=== PATIENT | female | born 1960 | race Caucasian/White ===

== ENCOUNTER 2016-03-29 08:57 | Emergency (ER) | payer BC, MEDICAID ==
[~2016-03-29] VITALS: Wt 78.0 kg
[~2016-03-29 08:57] MED LIST: ASPI-664 PO; ATOR10TA65 PO; DICY10CA60 PO; HYD25 PO; LOSA25TA5 PO; ONDA4TAB14 PO
[2016-03-29] MEDS ORDERED: BENZ100C70 PO (10:34)
[2016-03-29] MEDS ORDERED: IBUP-1542 PO (10:34)
--- NOTE | 2016-03-29 10:53 | RADRPT ---
PROCEDURE: Chest Radiograph. CLINICAL INDICATION: Cough. Congestion. TECHNIQUE: Single frontal chest radiograph. COMPARISON: Chest radiograph 05/28/2015 FINDINGS: The cardiomediastinal silhouette is within normal limits. No infiltrate or effusion is seen. Th e bones are intact. IMPRESSION: 1. Unremarkable chest radiograph. RPTAT: AA .Skip Rivera MD, MD Date Time Electronically viewed and signed by .Skip Rivera MD, on 03/29/2016 10:52 .B/
--- NOTE | 2016-03-29 10:53 | ERD ---
ER Documentation Chief Complaint Date/Time DATE: 03/29/16 TIME: 10:50 Chief Complaint FEVER COUGH X 3 DAYS HPI Patient is a 55-year-old female with history of hypertension presenting to the emergency department for cough ongoing for the past 2 days. Additionally the patient reports tactile fevers, chest congestion and slight stabbing chest pain only while coughing. The patient took ibuprofen yesterday with mild relief of symptoms. The patient denies any nausea, vomiting, diarrhea, urinary symptoms, or other symptoms at this time. ROS All systems reviewed and are negative except as per history of present illness. Medications Home Meds Active Scripts Ibuprofen* (Motrin*) 600 Mg Tab, 600 MG PO Q6, #20 TAB Prov:GOVIND CHEUNG PA-C 03/29/16 Benzonatate* (Tessalon Perle*) 100 Mg Capsule, 100 MG PO Q8H Y for COUGH, #20 CAP Prov:GOVIND CHEUNG PA-C 03/29/16 Ondansetron (Ondansetron Odt) 4 Mg Tab.rapdis, 4 MG PO Q6H Y for NAUSEA AND/OR VOMITING, #10 TAB Prov:GOVIND NATHAN 02/05/16 Dicyclomine Hcl* (Bentyl*) 10 Mg Capsule, 10 MG PO QID, #20 CAP Prov:GOVIND NATHAN 02/05/16 Aspirin* (Aspirin* EC) 81 Mg Tabec, 81 MG PO DAILY for 30 Days Prov:IVIS HAMMER 05/29/15 Reported Medications Atorvastatin Calcium (Atorvastatin Calcium) 10 Mg Tablet, 10 MG PO QHS, #30 TAB 05/28/15 Losartan Potassium* (Losartan Potassium*) 25 Mg Tablet, 25 MG PO DAILY, TAB 05/28/15 Hydrochlorothiazide* (Hydrochlorothiazide*) 25 Mg Tab, 25 MG PO DAILY, #30 TAB 05/28/15 Allergies Allergies: Coded Allergies: No Known Drug Allergies (Verified Allergy, Mild, 02/05/16) PMhx/Soc History of Surgery: Yes (ear surgery 3 years ago) Anesthesia Reaction: No Hx Neurological Disorder: No Hx Respiratory Disorders: No Hx Cardiac Disorders: Yes (htn) Hx Psychiatric Problems: No Hx Miscellaneous Medical Probl: Yes (high cholesterol) Hx Alcohol Use: No Hx Substance Use: No Hx Tobacco Use: No FmHx Noncontributory for chief complaint Physical Exam Vitals Vital Signs Date Time Temp Pulse Resp B/P Pulse Ox O2 Delivery O2 Flow Rate FiO2 03/29/16 09:03 99.0 101 18 153/78 99 Physical Exam INITIAL VITAL SIGNS: Reviewed by me. GENERAL: Alert and interactive. No acute distress. HEAD: Head is normocephalic and atraumatic. EYES: EOMI. No scleral icterus. No conjunctival injection. ENT: Moist mucosa. NECK: Supple. Full range of motion. RESPIRATORY: Normal respiratory effort. Clear breath sounds bilaterally. No wheezing, rales, or rhonchi. CV: Regular rate and rhythm. Normal S1 S2. No S3 or S4. No murmurs. ABDOMEN: Soft, non-distended, non-tender. No guarding. No rebound. No masses. EXTREMITIES: No deformity. SKIN: Warm and dry. NEUROLOGIC: Alert and oriented x 4. Speech is normal. Moves all extremities equally. No motor or sensory deficits noted. Procedures/MDM 35-year-old female presents secondary to complaints of cough and chest congestion ongoing for 2 days. On physical examination the patient's vitals are within normal limits. On auscultation of the lungs there are no crackles or exam findings concerning for bronchitis or pneumonia or asthma. EKG: Interpreted by ED physician Rate/Rhythm: Normal sinus rhythm with a rate of 83 bpm QRS, ST, T-waves: No changes consistent w/ acute ischemia Impression: No evidence of ischemia or arrhythmia Chest x-ray interpreted by radiologist: 1. Unremarkable chest radiograph. The patient's primary diagnosis is upper respiratory infection and secondary diagnosis is cough. I doubt bronchitis, pneumonia, asthma exacerbation, or other emergent conditions. I believe the symptoms are viral in etiology. Patient will be discharged home with a prescription for Tessalon Perles and ibuprofen to take only as needed for cough, fevers, or pain. The patient understands the diagnosis and treatment plan. The patient is hemodynamically stable prior to discharge. All questions and concerns were addressed. Departure Diagnosis: Primary Impression: Upper respiratory infection Additional Impression: Cough Condition: Fair Patient Instructions: Preventing Common Respiratory Infections, Cough, Chronic , Uncertain Cause, (Adult) Additional Instructions: No mas mejor en 2-3 ruiz, regresar. Mas peor en 24 horas, regresear rapidamente. Ir a doctor primario in 5-7 ruiz. Usar instrucciones cuando kiki medicamento. GOVIND CHEUNG PA-C Mar 29, 2016 10:53
[2016-03-29 11:23] VITALS: BP 141/65; PULSE 93; RESP 18; TEMP 98.5
== END 2016-03-29 11:24 | disposition home or self-care (01) ==
LOC: FTE 08:57
DX: J06.9 Acute upper respiratory infection, unspecified (principal); I10 Essential (primary) hypertension; Z79.82 Long term (current) use of aspirin
CPT/HCPCS: 71010

== ENCOUNTER 2016-04-01 10:08 | Emergency (ER) | payer BC ==
[~2016-04-01] VITALS: Wt 91.0 kg
[~2016-04-01 10:08] MED LIST changes: +BENZ100C70 PO; +IBUP-1542 PO
[2016-04-01] MEDS ORDERED: IBUPROFEN 600 MG TAB PO ONE (11:00)
--- NOTE | 2016-04-01 11:14 | RADRPT ---
PROCEDURE: XR Chest. CLINICAL INDICATION: chest pain, cough TECHNIQUE: Single frontal view of the chest was obtained COMPARISON: 03/29/2016 FINDINGS: The heart and mediastinum are within normal limits. The lungs are clear. There is no pleural effusion or pneumothorax. RPTAT: AA IMPRESSION: No acute disease. .Mario Morales MD, MD Date Time Electronically viewed and signed by .Mario Morales MD, MD on 04/01/2016 11:14 .S/
[2016-04-01] MEDS ORDERED: AZIT250T94 PO (11:33)
[2016-04-01] MEDS ORDERED: IBUP-1542 PO (11:33)
--- NOTE | 2016-04-01 11:38 | ERD ---
ER Documentation Chief Complaint Date/Time DATE: 04/01/16 TIME: 11:36 Chief Complaint FEVER BODY PAIN AND COUGH FOR A FEW DAYS. NO DISTRESS. SORE THROAT NOTED HPI This 55-year-old female complains of cough and body aches for last few days. There is no fever triage. She does have productive sputum. She denies vomiting , abdominal pain, diarrhea ROS All systems reviewed and are negative except as per history of present illness. Medications Home Meds Active Scripts Ibuprofen* (Motrin*) 600 Mg Tab, 600 MG PO Q6, #20 TAB Prov:RE REID MD 04/01/16 Azithromycin* (Zithromax*) 250 Mg Tablet, 250 MG PO .ZPACK DIRECTED, #6 TAB TAKE 500 MG (2 TABS) THE FIRST DAY THEN 250 MG (1 TAB) DAYS 2-5 Prov:RE REID MD 04/01/16 Ibuprofen* (Motrin*) 600 Mg Tab, 600 MG PO Q6, #20 TAB Prov:GOVIND CHEUNG PA-C 03/29/16 Benzonatate* (Tessalon Perle*) 100 Mg Capsule, 100 MG PO Q8H Y for COUGH, #20 CAP Prov:GOVIND CHEUNG PA-C 03/29/16 Ondansetron (Ondansetron Odt) 4 Mg Tab.rapdis, 4 MG PO Q6H Y for NAUSEA AND/OR VOMITING, #10 TAB Prov:GOVIND NATHAN 02/05/16 Dicyclomine Hcl* (Bentyl*) 10 Mg Capsule, 10 MG PO QID, #20 CAP Prov:GOVIND NATHAN 02/05/16 Aspirin* (Aspirin* EC) 81 Mg Tabec, 81 MG PO DAILY for 30 Days Prov:IVIS HAMMER 05/29/15 Reported Medications Atorvastatin Calcium (Atorvastatin Calcium) 10 Mg Tablet, 10 MG PO QHS, #30 TAB 05/28/15 Losartan Potassium* (Losartan Potassium*) 25 Mg Tablet, 25 MG PO DAILY, TAB 05/28/15 Hydrochlorothiazide* (Hydrochlorothiazide*) 25 Mg Tab, 25 MG PO DAILY, #30 TAB 05/28/15 Allergies Allergies: Coded Allergies: No Known Drug Allergies (Verified Allergy, Mild, 02/05/16) PMhx/Soc History of Surgery: Yes (ear surgery 3 years ago) Anesthesia Reaction: No Hx Neurological Disorder: No Hx Respiratory Disorders: No Hx Cardiac Disorders: Yes (htn) Hx Psychiatric Problems: No Hx Miscellaneous Medical Probl: Yes (high cholesterol) Hx Alcohol Use: No Hx Substance Use: No Hx Tobacco Use: No Smoking Status: Never smoker Physical Exam Vitals Vital Signs Date Time Temp Pulse Resp B/P Pulse Ox O2 Delivery O2 Flow Rate FiO2 04/01/16 10:11 99.5 97 20 140/81 97 Physical Exam Const: [] Alert, [id number]. Head: Atraumatic Eyes: Normal Conjunctiva ENT: Normal External Ears, Nose and Mouth. Neck: Full range of motion..~ No meningismus. Resp: Clear to auscultation bilaterally. Slight coarse breath sounds without rales, wheezing or retractions Cardio: Regular rate and rhythm, no murmurs Abd: Soft, non tender, non distended. Normal bowel sounds Skin: No petechiae or rashes Back: No midline or flank tenderness Ext: No cyanosis, or edema Neur: Awake and alert Psych: Normal Mood and Affect Results 24 hrs Current Medications Medications (Trade) Dose Ordered Sig/Ruth Route PRN Reason Start Time Stop Time Status Last Admin Dose Admin Ibuprofen (Motrin) 600 mg ONCE ONCE PO 04/01/16 11:00 04/01/16 11:01 DC 04/01/16 10:51 Procedures/MDM Chest X-ray 1V Interpreted by me: Soft Tissue: No acute abnormalities Bones: No acute abnormalities Mediastinum/Cardiac Silhouette/Lungs: [No acute abnormalities]. Impression- normal 1 view chest x-ray Patient presents with a cough and body aches last few days. She likely has a resolving viral illness to given the duration and active cough she will be treated with Zithromax, and ibuprofen. The patient was stable with no new complaints during the ER course. Clinically, there is no current evidence to suggest meningitis, sepsis, acute abdomen, pneumonia, acute coronary syndrome, pulmonary embolism, or any other emergent condition appearing to require further evaluation or hospitalization. The patient should certainly return for any new or worsening symptoms per the aftercare instructions. They should otherwise follow-up with her primary care doctor for reevaluation this week. Departure Diagnosis: Primary Impression: URI, acute Additional Impression: Fever Fever type: unspecified Qualified Code: R50.9 - Fever, unspecified fever cause Condition: Stable Patient Instructions: Acute Bronchitis, Fever Control (Adult) Additional Instructions: X RAY NORMAL . Cheque otro vez con stack doctor primario en el proximo ruiz or regresa para mas o nueva simptomas. RE REID MD Apr 01, 2016 11:38
[2016-04-01] MEDS ORDERED: D-ME473S18 PO (11:39)
== END 2016-04-01 11:44 | disposition home or self-care (01) ==
LOC: FTE 10:08
DX: J06.9 Acute upper respiratory infection, unspecified (principal); R50.9 Fever, unspecified; I10 Essential (primary) hypertension; Z79.82 Long term (current) use of aspirin
CPT/HCPCS: 71010; 99284; Z7610

== ENCOUNTER 2016-04-16 11:02 | Emergency (ER) | payer BC ==
[~2016-04-16] VITALS: Wt 108.0 kg
[~2016-04-16 11:02] MED LIST changes: +AZIT250T94 PO; +D-ME473S18 PO
[2016-04-16] MEDS ORDERED: KETOROLAC 30 MG INJ IM STA (12:46)
[2016-04-16] MEDS ORDERED: predniSONE 20 MG TAB PO ONE (13:00)
[2016-04-16 13:27] LABS: URINE BLOOD (Dip) POC Negative (NEGATIVE)
--- NOTE | 2016-04-16 13:45 | ERD ---
ER Documentation Chief Complaint Date/Time DATE: 04/16/16 TIME: 13:42 Chief Complaint low back pain radiating to right leg. no trauma. unable to walk HPI This is a 55-year-old female who presents to the emergency department today complaining of right-sided hip and back pain for the past week. Patient states that starting last night she had pain going down her leg and she is unable to walk. Patient took ibuprofen yesterday with limited improvement. She did not take any medication today because "I thought you would give me something for pain". States she also has some dysuria but denies any loss of bowel or bladder control. Denies any fevers or chills. ROS All systems reviewed and are negative except as per history of present illness. Medications Home Meds Active Scripts Nitrofurantoin Monohyd Macrocr* (Macrobid*) 100 Mg Capsr, 100 MG PO BID for 7 Days, CAP Prov:REBECCA NGOC 04/16/16 Cyclobenzaprine Hcl* (Cyclobenzaprine Hcl*) 10 Mg Tablet, 10 MG PO QHS, #7 TAB Prov:PROREBECCA PETERSENC 04/16/16 Prednisone* (Prednisone*) 20 Mg Tab, 40 MG PO DAILY for 4 Days, TAB Prov:REBECCA NGOC 04/16/16 Naproxen* (Naprosyn*) 500 Mg Tablet, 500 MG PO BID Y for PAIN AND/OR INFLAMMATION, #30 TAB Prov:REBECCA NGOC 04/16/16 Hydrocodone/Acetaminophen ([place] 5-325 Tablet) 1 Each Tablet, 1 TAB PO Q6H Y for PAIN, #15 TAB Prov:REBECCA NGOC 04/16/16 Dextromethorphan Hb-Promethazine Hcl (Promethazine DM Syrup) 473 Ml Syrup, 5 ML PO Q6H Y for COUGH, #4 OZ Prov:RE REID MD 04/01/16 Ibuprofen* (Motrin*) 600 Mg Tab, 600 MG PO Q6, #20 TAB Prov:RE REID MD 04/01/16 Azithromycin* (Zithromax*) 250 Mg Tablet, 250 MG PO .EsmePACK DIRECTED, #6 TAB TAKE 500 MG (2 TABS) THE FIRST DAY THEN 250 MG (1 TAB) DAYS 2-5 Prov:RE REID MD 04/01/16 Ibuprofen* (Motrin*) 600 Mg Tab, 600 MG PO Q6, #20 TAB Prov:GOVIND CHEUNG PA-C 03/29/16 Benzonatate* (Tessalon Perle*) 100 Mg Capsule, 100 MG PO Q8H Y for COUGH, #20 CAP Prov:GOVIND CHEUGN PA-C 03/29/16 Ondansetron (Ondansetron Odt) 4 Mg Tab.rapdis, 4 MG PO Q6H Y for NAUSEA AND/OR VOMITING, #10 TAB Prov:GOVIND NATHAN 02/05/16 Dicyclomine Hcl* (Bentyl*) 10 Mg Capsule, 10 MG PO QID, #20 CAP Prov:GOVIND NATHAN 02/05/16 Aspirin* (Aspirin* EC) 81 Mg Tabec, 81 MG PO DAILY for 30 Days Prov:IVIS HAMMER 05/29/15 Reported Medications Atorvastatin Calcium (Atorvastatin Calcium) 10 Mg Tablet, 10 MG PO QHS, #30 TAB 05/28/15 Losartan Potassium* (Losartan Potassium*) 25 Mg Tablet, 25 MG PO DAILY, TAB 05/28/15 Hydrochlorothiazide* (Hydrochlorothiazide*) 25 Mg Tab, 25 MG PO DAILY, #30 TAB 05/28/15 Allergies Allergies: Coded Allergies: No Known Drug Allergies (Verified Allergy, Mild, 02/05/16) PMhx/Soc History of Surgery: Yes (ear surgery 3 years ago) Anesthesia Reaction: No Hx Neurological Disorder: No Hx Respiratory Disorders: No Hx Cardiac Disorders: Yes (htn) Hx Psychiatric Problems: No Hx Miscellaneous Medical Probl: Yes (high cholesterol) Hx Alcohol Use: No Hx Substance Use: No Hx Tobacco Use: No Physical Exam Vitals Vital Signs Date Time Temp Pulse Resp B/P Pulse Ox O2 Delivery O2 Flow Rate FiO2 04/16/16 11:09 97.9 65 20 137/65 98 Physical Exam Const: Sitting in wheelchair, mild distress Head: Atraumatic Eyes: Normal Conjunctiva ENT: Normal External Ears, Nose and Mouth. Neck: Full range of motion..~ No meningismus. Resp: Clear to auscultation bilaterally Cardio: Regular rate and rhythm, no murmurs Abd: Soft, non tender, non distended. Normal bowel sounds Skin: No petechiae or rashes Back: Lumbar spine midline tenderness and right-sided paraspinal tenderness. Unable to assess range of motion secondary to pain. Pulses 2+. Distal neurovascularly intact. Ext: No cyanosis, or edema. No calf pain. Neur: Awake and alert Psych: Normal Mood and Affect Results 24 hrs Laboratory Tests Test 04/16/16 13:30 Bedside Urine Blood Negative Bedside Urine Glucose (UA) Negative Bedside Urine Ketones (LAB) Negative Bedside Urine Leukocyte Esterase (L Trace Bedside Urine Nitrite (LAB) Negative Bedside Urine Protein (LAB) Negative Bedside Urine pH (LAB) 6.5 Current Medications Medications (Trade) Dose Ordered Sig/Ruth Route PRN Reason Start Time Stop Time Status Last Admin Dose Admin Ketorolac Tromethamine (Toradol) 30 mg ONCE STAT IM 04/16/16 12:46 04/16/16 12:49 DC 04/16/16 13:04 Prednisone (Prednisone) 60 mg ONCE ONCE PO 04/16/16 13:00 04/16/16 13:01 DC 04/16/16 13:08 Acetaminophen/ Hydrocodone Bitart ([place] (5/325)) 1 tab ONCE ONCE PO 04/16/16 14:30 04/16/16 14:31 DIAGNOSTIC IMAGING REPORT Patient: ESTELA OSWALD : 1960 Age: 55 Sex: F MR #: [id number] DOS: 04/16/16 0000 Ordering MD: REBECCA NGO PA-C Location: [facility] Room/Bed: PROCEDURE: XR Hip. CLINICAL INDICATION: Right hip pain. TECHNIQUE: AP and frog lateral views of the right hip were performed. COMPARISON: No. FINDINGS: The soft tissues and bony elements are normal. The right acetabular joint space and right SI joint appear normal. IMPRESSION: 1. Normal AP and frog-leg views of the right hip.. RPTAT:AAJJ Physician Nayana Date Time Electronically viewed and signed by Wilbert Bashir Physician on 04/16/2016 13:57 SHANNON/ CC: REBECCA NGO PA-C DIAGNOSTIC IMAGING REPORT Patient: ESTELA OSWALD : 1960 Age: 55 Sex: F MR #: [id number] DOS: 04/16/16 0000 Ordering MD: REBECAC NGO PA-C Location: [facility] Room/Bed: PROCEDURE: XR Lumbar Spine. CLINICAL INDICATION: Lumbar pain with radicular symptoms. TECHNIQUE: AP, lateral and cone-down lateral view of the lumbar spine were obtained. COMPARISON: No. FINDINGS: There are degenerative osteophytes in the lower thoracic and lumbar spine. The neural canal and nerve root foramina are normal. There are 5 lumbar vertebra. There is a spina bifida occulta at L5. There is disk space narrowing with ventral spondylosis at L5-S1. There is disk space narrowing with vacuum disk phenomenon and ventral spondylosis at T11-T12. There is disk space narrowing and ventral spondylosis at T12-L1, L1-2, L2-3 and L3-4. There are calcifications in the lower left abdomen which could be the result of lymph nodes. There is scattered fecal material in the colon. IMPRESSION: 1. 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 No evidence of spondylolisthesis. RPTAT:AAJJ Physician Nayana Date Time Electronically viewed and signed by Wilbert Bashir Physician on 04/16/2016 14:01 JM/ CC: REBECCA NGO PA-C Procedures/MDM This is a 55-year-old female who presents to the emergency department today complaining of right-sided back pain that radiates down into her right leg as well as right hip pain and dysuria. Given the patient's complaints of being unable to walk he did obtain images of the patient's lumbar spine and right hip as well as a UA. UA shows trace leukocyte esterase. I will treat the patient for urinary tract infection as she is symptomatic. Per the radiology report images of the right hip are unremarkable. Right acetabular joint space and SI joints appear normal. Images of the lumbar spine show degenerative osteophytes in the lower thoracic and lumbar spine. The neural canal and nerve root foramina are normal. There is disc space narrowing with ventral spondylosis at L5 and S1. There is disc space narrowing with vacuum disc phenomenon and ventral spondylosis at T11 and T12. There is disc space narrowing and ventral spondylosis at T12 and L1 L1-L2 L2-L3 and L3 and L4. This is likely the source of the patient's pain causing sciatic pain and symptoms at this time. Patient was given Toradol and prednisone here in the emergency department and pain improved from a 10 down to a 6. Patient was still complaining of pain however and I did offer the patient another injection or an oral medication and patient indicated that the oral medication was okay. Patient was given a [place] for pain. Patient is here with her son and daughter she indicated that she was having problems walking and felt that her leg was weak. I did discuss with the patient and the patient's family and the need for safety and son and daughter felt comfortable taking her home and watching her at home. Patient will be given a prescription for [place], prednisone, Naprosyn and Flexeril. I will also give her a prescription for Macrobid to treat a urinary tract infection. At this time the patient is stable for discharge and outpatient management. Patient should follow up with their PCP in the next 1-2 days. They may return to the emergency department sooner for any persistent or worsening of symptoms. Patient understood and agreed with the plan. Departure Diagnosis: Primary Impression: Back pain Back pain location: low back pain Chronicity: unspecified Back pain laterality: right Sciatica presence: with sciatica Sciatica laterality: sciatica of right side Qualified Code: M54.41 - Right-sided low back pain with right-sided sciatica, unspecified chronicity Additional Impression: UTI (urinary tract infection) Urinary tract infection type: site unspecified Hematuria presence: without hematuria Qualified Code: N39.0 - Urinary tract infection without hematuria, site unspecified Condition: REBECCA Beard PA-C Apr 16, 2016 13:45
--- NOTE | 2016-04-16 13:57 | RADRPT ---
PROCEDURE: XR Hip. CLINICAL INDICATION: Right hip pain. TECHNIQUE: AP and frog lateral views of the right hip were performed. COMPARISON: No. FINDINGS: The soft tissues and bony elements are normal. The right acetabular joint space and right SI joint appear normal. IMPRESSION: 1. Normal AP and frog-leg views of the right hip.. RPTAT:AAJJ Physician Nayana Date Time Electronically viewed and signed by Wilbert Bashir Physician on 04/16/2016 13:57 SHANNON/
--- NOTE | 2016-04-16 14:01 | RADRPT ---
PROCEDURE: XR Lumbar Spine. CLINICAL INDICATION: Lumbar pain with radicular symptoms. TECHNIQUE: AP, lateral and cone-down lateral view of the lumbar spine were obtained. COMPARISON: No. FINDINGS: There are degenerative osteophytes in the lower thoracic and lumbar spine. The neural canal and ner ve root foramina are normal. There are 5 lumbar vertebra. There is a spina bifida occulta at L5. There is disk space narrowing with ventral spondylosis at L5-S1. There is disk space narrowing with vacuum disk phenomenon and ventral spondylosis at T11-T12. There is disk space narrowing and ventr al spondylosis at T12-L1, L1-2, L2-3 and L3-4. There are calcifications in the lower left abdomen w hich could be the result of lymph nodes. There is scattered fecal material in the colon. IMPRESSION: 1. 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 No evidence of spondylolisthesis. RPTAT:AAJJ Physician Nayana Date Time Electronically viewed and signed by Wilbert Bashir Physician on 04/16/2016 14:01 SHANNON/
[2016-04-16] MEDS ORDERED: PRED20TA PO (14:23)
[2016-04-16] MEDS ORDERED: HYDR-906 PO (14:23)
[2016-04-16] MEDS ORDERED: NAPR-260 PO (14:23)
[2016-04-16] MEDS ORDERED: NITR-58 PO (14:24)
[2016-04-16] MEDS ORDERED: CYCL-319 PO (14:24)
[2016-04-16] MEDS ORDERED: HYDROCODONE/APAP (5/325) TAB PO ONE (14:30)
[2016-04-16 14:56] VITALS: BP 135/65; PULSE 69; RESP 18; TEMP 97.7
== END 2016-04-16 14:54 | disposition home or self-care (01) ==
LOC: FTE 11:02
DX: M54.41 Lumbago with sciatica, right side (principal); N39.0 Urinary tract infection, site not specified; I10 Essential (primary) hypertension; Z79.82 Long term (current) use of aspirin
CPT/HCPCS: 72100; 73510; 81003; 96372; 99284; J1885; J7512; Z7610

== ENCOUNTER 2016-08-07 19:22 | Emergency (ER) | payer BC ==
[~2016-08-07] VITALS: Wt 99.0 kg
[~2016-08-07 19:22] MED LIST changes: +CYCL-319 PO; +HYDR-906 PO; +NAPR-260 PO; +NITR-58 PO; +PRED20TA PO
[2016-08-07] MEDS ORDERED: KETOROLAC 30 MG INJ IM STA (20:42)
[2016-08-07] MEDS ORDERED: BENZ100C70 PO (21:05)
[2016-08-07] MEDS ORDERED: NAPR-685 PO (21:05)
[2016-08-07] MEDS ORDERED: POLY10DR19 BOTH EYES (21:05)
--- NOTE | 2016-08-08 00:06 | ERD ---
ER Documentation Chief Complaint Date/Time DATE: 08/08/16 TIME: 00:04 Chief Complaint Left eye redness x9 days, cough and fever x2 days HPI 55-year-old female complains of bilateral eye redness, she has had discharge on and off for the past 3 weeks to the left eye that is white color, also URI symptoms for 2 days. She has had a cough, rhinorrhea, sore throat. There is associated left temporal headache headache was gradual in onset, worse with coughing, throbbing, moderate pain. cough has been dry, no hemoptysis or fevers or chills. Denies chest pain. Denies shortness of breath. ROS All systems reviewed and are negative except as per history of present illness. Medications Home Meds Active Scripts Naproxen* (Naproxen*) 375 Mg Tablet, 375 MG PO BID Y for PAIN, #20 TAB Prov:KATERINA GOLD PA-C 08/07/16 Benzonatate* (Tessalon Perle*) 100 Mg Capsule, 100 MG PO Q8H Y for COUGH, #30 CAP Prov:KATERINA GOLD PA-C 08/07/16 Polymyxin B Sulfate-TMP* (Polymyxin B-TMP Eye Drops*) 10 Ml Drops, 1 DROP BOTH EYES QID for 7 Days, EA Prov:KATERINA GOLD PA-C 08/07/16 Nitrofurantoin Monohyd Macrocr* (Macrobid*) 100 Mg Capsr, 100 MG PO BID for 7 Days, CAP Prov:REBECCA NGO PA-C 04/16/16 Cyclobenzaprine Hcl* (Cyclobenzaprine Hcl*) 10 Mg Tablet, 10 MG PO QHS, #7 TAB Prov:REBECCA NGO PA-C 04/16/16 Prednisone* (Prednisone*) 20 Mg Tab, 40 MG PO DAILY for 4 Days, TAB Prov:REBECCA NGO PA-C 04/16/16 Naproxen* (Naprosyn*) 500 Mg Tablet, 500 MG PO BID Y for PAIN AND/OR INFLAMMATION, #30 TAB Prov:REBECCA NGOC 04/16/16 Hydrocodone/Acetaminophen ([place] 5-325 Tablet) 1 Each Tablet, 1 TAB PO Q6H Y for PAIN, #15 TAB Prov:REBECCA NGOC 04/16/16 Dextromethorphan Hb-Promethazine Hcl (Promethazine DM Syrup) 473 Ml Syrup, 5 ML PO Q6H Y for COUGH, #4 OZ Prov:RE REID MD 04/01/16 Ibuprofen* (Motrin*) 600 Mg Tab, 600 MG PO Q6, #20 TAB Prov:RE REID MD 04/01/16 Azithromycin* (Zithromax*) 250 Mg Tablet, 250 MG PO .ZPACK DIRECTED, #6 TAB TAKE 500 MG (2 TABS) THE FIRST DAY THEN 250 MG (1 TAB) DAYS 2-5 Prov:RE REID MD 04/01/16 Ibuprofen* (Motrin*) 600 Mg Tab, 600 MG PO Q6, #20 TAB Prov:GOVIND CHEUNG PA-C 03/29/16 Benzonatate* (Tessalon Perle*) 100 Mg Capsule, 100 MG PO Q8H Y for COUGH, #20 CAP Prov:GOVIND CHEUNG PA-C 03/29/16 Ondansetron (Ondansetron Odt) 4 Mg Tab.rapdis, 4 MG PO Q6H Y for NAUSEA AND/OR VOMITING, #10 TAB Prov:GOVIND NATHAN 02/05/16 Dicyclomine Hcl* (Bentyl*) 10 Mg Capsule, 10 MG PO QID, #20 CAP Prov:GOVIND NATHAN 02/05/16 Aspirin* (Aspirin* EC) 81 Mg Tabec, 81 MG PO DAILY for 30 Days Prov:IVIS HAMMER 05/29/15 Reported Medications Atorvastatin Calcium (Atorvastatin Calcium) 10 Mg Tablet, 10 MG PO QHS, #30 TAB 05/28/15 Losartan Potassium* (Losartan Potassium*) 25 Mg Tablet, 25 MG PO DAILY, TAB 05/28/15 Hydrochlorothiazide* (Hydrochlorothiazide*) 25 Mg Tab, 25 MG PO DAILY, #30 TAB 05/28/15 Allergies Allergies: Coded Allergies: No Known Drug Allergies (Verified Allergy, Mild, 02/05/16) PMhx/Soc History of Surgery: Yes (ear surgery 3 years ago) Anesthesia Reaction: No Hx Neurological Disorder: No Hx Respiratory Disorders: No Hx Cardiac Disorders: Yes (htn) Hx Psychiatric Problems: No Hx Miscellaneous Medical Probl: Yes (high cholesterol) Hx Alcohol Use: No Hx Substance Use: No Hx Tobacco Use: No Smoking Status: Never smoker Physical Exam Vitals Vital Signs Date Time Temp Pulse Resp B/P Pulse Ox O2 Delivery O2 Flow Rate FiO2 08/07/16 20:16 98.3 89 20 149/76 96 Physical Exam Const: Well-developed, well-nourished, in no acute distress. HEENT: Atraumatic. Injection to the bilateral conjunctiva, there is no crusting, extraocular movements intact, eyes are Simón. TM's normal bilaterally , clear oropharynx. Supple. Full range of motion. No meningismus. Resp: Clear to auscultation bilaterally Cardio: Regular rate and rhythm, no murmurs Abd: Soft, non tender, non distended. Normal bowel sounds. No McBurney' s point tenderness. No guarding or rigidity. No peritoneal signs. Skin: No petechia or rashes Back: No midline or flank tenderness Ext: No cyanosis, or edema Neur: Awake and alert, appropriate for age Results 24 hrs Current Medications Medications (Trade) Dose Ordered Sig/Ruth Route PRN Reason Start Time Stop Time Status Last Admin Dose Admin Ketorolac Tromethamine (Toradol) 30 mg ONCE STAT IM 08/07/16 20:42 08/07/16 20:43 DC 08/07/16 21:16 Procedures/MDM ED course: Patient was given Toradol 30 mg IM for the headache. MDM: The patient is a 55-year-old who comes in with an acute upper respiratory infection, presumed viral, conjunctivitis of both eyes. Patient is afebrile, normal breath sounds noted, this is likely viral upper respiratory infection. She has had crusting to bilateral eyes, will be given eyedrops. The patient has a differential diagnosis of a viral upper respiratory infection, bacterial upper respiratory infection, bronchitis, pneumonia, pharyngitis, laryngitis, epiglottitis, croup, pneumonia. Patient has a normal pulmonary examination, clear breath sounds, normal pulse oximetry, with no corrective measures needed at this time. Fluids, rest, antipyretics were encouraged. Patient's blood pressure was elevated (>120/80) but appears stable without evidence of hypertension emergency or urgency. The patient was counseled about the risks of hypertension and urged to pursue outpatient monitoring and therapy within a week with their primary care physician. Departure Diagnosis: Primary Impression: Conjunctivitis Additional Impression: URI (upper respiratory infection) Condition: Good Patient Instructions: Conjunctivitis, Bacterial, Uri, Viral, No Abx (Adult) Additional Instructions: Llame al doctor MAANA y shana jame JOCE PARA DENTRO DE 1-2 BARROSO.Dgale a la secretaria que nosotros le instruimos hacer esta joce.Avise o llame si stack condicin se empeora antes de la joce. Regresa aqui si peor o no mejor. KATERINA GOLD PA-C Aug 08, 2016 00:05
== END 2016-08-07 21:41 | disposition home or self-care (01) ==
LOC: FTE 19:22
DX: H10.9 Unspecified conjunctivitis (principal); J06.9 Acute upper respiratory infection, unspecified; I10 Essential (primary) hypertension; Z79.82 Long term (current) use of aspirin
CPT/HCPCS: 96372; 99284; J1885

== ENCOUNTER 2017-04-30 17:23 | Emergency (ER) | END 2017-04-30 17:54 | disposition home or self-care (01) ==

== ENCOUNTER 2017-05-10 20:30 | Emergency (ER) | END 2017-05-11 00:39 | disposition home or self-care (01) ==

== ENCOUNTER 2017-09-26 12:17 | Emergency (ER) | END 2017-09-26 19:23 | disposition home or self-care (01) ==

== ENCOUNTER 2018-05-02 17:18 | Emergency (ER) | payer BC ==
[~2018-05-02] VITALS: Ht 170.2 cm; Wt 99.8 kg
[~2018-05-02 17:18] MED LIST changes: +ACET500C5 PO; +AMOX1TAB10 PO; -ASPI-664 PO; +ASPI-817 PO; +AZIT250T PO; -AZIT250T94 PO; +BENZ-6 PO; -BENZ100C70 PO; +CETI10CA PO; -CYCL-319 PO; +CYCL10TA7 PO; +DICY10CA40 PO; -DICY10CA60 PO; +FLUT9.9S NASAL; -HYD25 PO; +HYDR-4011 PO; -HYDR-906 PO; +HYDR25TA6 PO; +LOSA25TA12 PO; -LOSA25TA5 PO; -NAPR-260 PO; +NAPR-685 PO; +NAPR-985 PO; +PHEN10TA20 PO; +POLY10DR19 BOTH EYES
[2018-05-02 17:39] VITALS: Ht 170.2 cm; Wt 99.8 kg
[2018-05-02] MEDS ORDERED: SOD CHLORIDE 0.9% 1,000 ML IV STA (21:24)
[2018-05-02] MEDS ORDERED: KETOROLAC 15 MG INJ IV STA (21:24)
--- NOTE | 2018-05-02 21:29 | ERD ---
ER Documentation Chief Complaint Chief Complaint cough sore throat headache also pain with urination x 4 days HPI This is a 57-year-old female past medical history of hyperlipidemia and hyp ertension presents to the ED with complaints of a persistent productive cough times 4 days. She also reports associated chest congestion and chest pain, only when coughing. Been taking [id number] cough drops without any relief. She also reports associated body aches and diffuse headache times 1 week. She also reports intermittent urinary frequency and urgency and dysuria times 5 months. 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 She states she is still having urinary symptoms today. She endorses having chills but denies any recorded fevers, abdominal pain, flank pain, nausea, vomiting, diarrhea or any other symptoms. ROS All systems reviewed and are negative except as per history of present illness. Medications Home Meds Active Scripts Acetaminophen* (Acetaminophen*) 500 MG Extra Strength Tablet, 500 MG PO Q4H PRN for PAIN AND OR ELEVATED TEMP, #30 TAB Prov:SHASHI DIAZ PA-C 05/02/18 Albuterol Sulfate* (Proair HFA*) 8.5 Gm Hfa.aer.ad, 2 PUFF INH Q4H PRN for WHEEZING AND SOB, #1 INHALER Prov:SHASHI DIAZ PA-C 05/02/18 Dextromethorphan Hb-Promethazine Hcl* (Promethazine DM* Syrup) 473 Ml Syrup, 5 ML PO Q6 PRN for COUGH for 5 Days, ML Prov:SHASHI DIAZ PA-C 05/02/18 Acetaminophen* (Tylophen*) 500 Mg Capsule, 1 CAP PO Q6H PRN for PAIN AND OR ELEVATED TEMP, #20 CAP Prov:SEVEN DE LA ROSA PA-C 09/26/17 Ibuprofen* (Motrin*) 600 Mg Tab, 600 MG PO Q6, #30 TAB Prov:LEXUS,YVON 05/11/17 Phenylephrine Hcl (Sudogest PE) 10 Mg Tablet, 10 MG PO BID PRN for otalgia for 3 Days, TAB Prov:LEXUS,YVON 05/11/17 Cetirizine Hcl* (Zyrtec*) 10 Mg Capsule, 10 MG PO DAILY, #10 TAB.CHEW Prov:LEXUS,YVON 05/11/17 Fluticasone Propionate (Flonase Allergy Relief) 9.9 Ml [place].susp, 1 SPRAY NASAL BID, #1 BOTTLE TO EACH NOSTRIL Prov:LEXUS,YVON 05/11/17 Ibuprofen* (Motrin*) 600 Mg Tab, 600 MG PO Q6, #20 TAB Prov:GOVIND CHEUNG PA-C 04/30/17 Amoxicillin/Potassium Clav (Amox-Clav 875-125 mg Tablet) 875-125 mg Tab, 1 TAB PO BID for 10 Days, #20 TAB Prov:GOVIND CHEUNG PA-C 04/30/17 Naproxen* (Naproxen*) 375 Mg Tablet, 375 MG PO BID PRN for PAIN, #20 TAB Prov:KATERINA GOLD PA-C 08/07/16 Benzonatate* (Tessalon Perle*) 100 Mg Capsule, 100 MG PO Q8H PRN for COUGH, #30 CAP Prov:KATERINA GOLD PA-C 08/07/16 Polymyxin B Sulfate-TMP* (Polymyxin B-TMP Eye Drops*) 10 Ml Drops, 1 DROP BOTH EYES QID for 7 Days, EA Prov:KATERINA GOLD PA-C 08/07/16 Nitrofurantoin Monohyd Macrocr* (Macrobid*) 100 Mg Capsr, 100 MG PO BID for 7 Days, CAP Prov:REBECCA NGOC 04/16/16 Cyclobenzaprine Hcl* (Cyclobenzaprine Hcl*) 10 Mg Tablet, 10 MG PO QHS, #7 TAB Prov:REBECCA NGOC 04/16/16 Prednisone* (Prednisone*) 20 Mg Tab, 40 MG PO DAILY for 4 Days, TAB Prov:REBECCA NGOC 04/16/16 Naproxen* (Naprosyn*) 500 Mg Tablet, 500 MG PO BID PRN for PAIN AND/OR INFLAMMATION, #30 TAB Prov:REBECCA NGOC 04/16/16 Hydrocodone/Acetaminophen ([place] 5-325 Tablet) 1 Each Tablet, 1 TAB PO Q6H PRN for PAIN, #15 TAB Prov:REBECCA NGOC 04/16/16 Dextromethorphan Hb-Promethazine Hcl (Promethazine DM Syrup) 473 Ml Syrup, 5 ML PO Q6H PRN for COUGH, #4 OZ Prov:RE REID MD 04/01/16 Ibuprofen* (Motrin*) 600 Mg Tab, 600 MG PO Q6, #20 TAB Prov:RE REID MD 04/01/16 Azithromycin* (Zithromax*) 250 Mg Tablet, 250 MG PO .ZPACK DIRECTED, #6 TAB TAKE 500 MG (2 TABS) THE FIRST DAY THEN 250 MG (1 TAB) DAYS 2-5 Prov:RE REID MD 04/01/16 Ibuprofen* (Motrin*) 600 Mg Tab, 600 MG PO Q6, #20 TAB Prov:GOVIND CHEUNGC 03/29/16 Benzonatate* (Tessalon Perle*) 100 Mg Capsule, 100 MG PO Q8H PRN for COUGH, #20 CAP Prov:GOVIND CHEUNG PA-C 03/29/16 Ondansetron (Ondansetron Odt) 4 Mg Tab.rapdis, 4 MG PO Q6H PRN for NAUSEA AND/OR VOMITING, #10 TAB Prov:GOVIND NATHAN 02/05/16 Dicyclomine HCl (Dicyclomine HCl) 10 Mg Capsule, 10 MG PO QID, #20 CAP Prov:GOVIND NATHAN 02/05/16 Aspirin* (Aspirin* EC) 81 Mg Tabec, 81 MG PO DAILY for 30 Days Prov:IVIS HAMMER 05/29/15 Reported Medications Atorvastatin Calcium (Atorvastatin Calcium) 10 Mg Tablet, 10 MG PO QHS, #30 TAB 05/28/15 Losartan Potassium* (Losartan Potassium*) 25 Mg Tablet, 25 MG PO DAILY, TAB 05/28/15 Hydrochlorothiazide* (Hydrochlorothiazide*) 25 Mg Tab, 25 MG PO DAILY, #30 TAB 05/28/15 Allergies Allergies: Coded Allergies: No Known Drug Allergies (Verified Allergy, Mild, 02/05/16) PMhx/Soc History of Surgery: Yes (R Ear Surgery; L Side Neck Cyst Removal) Anesthesia Reaction: No Hx Neurological Disorder: No Hx Respiratory Disorders: No Hx Cardiac Disorders: Yes (HTN) Hx Psychiatric Problems: No Hx Miscellaneous Medical Probl: Yes (Dyslipidemia) Hx Alcohol Use: No Hx Substance Use: No Hx Tobacco Use: No Smoking Status: Never smoker Physical Exam Vitals Vital Signs Date Temp Pulse Resp B/P (MAP) Pulse Ox O2 O2 Flow FiO2 Time Delivery Rate 05/02/18 99.6 21:35 05/02/18 99.8 90 20 141/80 97 17:39 (100) Physical Exam Const: No acute distress Head: Atraumatic Eyes: Normal Conjunctiva ENT: Normal External Ears, Nose and Mouth. + Dry mucous membranes. + Posterior OP erythematous, no tonsillar edema or exudates. Uvula midline. No sinus tenderness. Neck: Full range of motion. No meningismus. + Bilateral lymphadenopathy Resp: Clear to auscultation bilaterally Cardio: Regular rate and rhythm, no murmurs Abd: Soft, non tender, non distended. Normal bowel sounds Skin: No petechiae or rashes Back: No midline or flank tenderness Ext: No cyanosis, or edema Neur: Awake and alert Psych: Normal Mood and Affect Results 24 hrs Laboratory Tests Test 05/02/18 21:02 05/02/18 22:06 Bedside Urine pH (LAB) 6.0 Bedside Urine Protein (LAB) Negative Bedside Urine Glucose (UA) Negative Bedside Urine Ketones (LAB) Negative Bedside Urine Blood Trace-intact Bedside Urine Nitrite (LAB) Negative Bedside Urine Leukocyte Esterase (L Negative Urine Color YELLOW Urine Clarity CLEAR Urine pH 6.0 Urine Specific [place] 1.011 Urine Ketones NEGATIVE mg/dL Urine Nitrite NEGATIVE mg/dL Urine Bilirubin NEGATIVE mg/dL Urine Urobilinogen NEGATIVE mg/dL Urine Leukocyte Esterase NEGATIVE [place] Urine Hemoglobin NEGATIVE mg/dL Urine Glucose NEGATIVE mg/dL Urine Total Protein NEGATIVE mg/dl Current Medications Medications Dose Sig/Ruth Start Time Status Last (Trade) Ordered Route PRN Stop Time Admin Dose Reason Admin Sodium 1,000 ml @ Q1H STAT 05/02/18 DC 05/02/18 Chloride 1,000 mls/hr IV 21:24 21:37 05/02/18 22:23 Ketorolac 15 mg ONCE STAT 05/02/18 DC 05/02/18 Tromethamine IV 21:24 21:36 (Toradol) 05/02/18 21:26 650 mg ONCE ONCE 05/02/18 DC 05/02/18 Acetaminophen PO 21:30 21:35 (Tylenol 05/02/18 21:31 Tab) Procedures/MDM EMERGENT LABS AND DIAGNOSTIC STUDIES: Lab Results above were reviewed and interpreted by me as below. Urine: no e/o acute infection or hematuria Radiology Results as interpreted by Radiology: PROCEDURE: One view chest radiograph. CLINICAL INDICATION: Abdominal pain TECHNIQUE: An AP view of the chest was obtained. COMPARISON: CR CHEST 04/01/2016; CR CHEST 03/29/2016; CR CHEST 05/28/2015 FINDINGS: Mediastinum: Unremarkable. Heart size: Normal. Pulmonary vasculature: No visible engorgement. Lungs: Clear. Costophrenic sulci: Clear. Bony structures: Grossly unremarkable for age. IMPRESSION: 1. Unremarkable single view chest. Nursing Notes Reviewed. Previous Medical Records requested via the Electronic Health Record. EMERGENCY DEPARTMENT COURSE / MEDICAL DECISION MAKING: This is a 57-year-old female presents to the ED with complaints of productive cough for the past 3 days. Vital signs are stable here. She has no signs of fever, no hypoxia, and is in no respiratory distress. Lung sounds are clear on physical exam. Chest x-ray was negative for any pneumonia. Symptoms are likely viral in origin. I will treat for viral bronchitis, I do not think she needs any antibiotics at this point given that she has only had the symptoms for a few days. I am prescribing her Promethazine DM, albuterol inhaler, and Tylenol to use as needed for the next few days. Of note, patient also complained of intermittent urinary dysuria and frequency times 5 months. Interesting, UA is negative for any urinary tract infection. I discussed these with patient and daughter at bedside. She was given a copy of the results and recommended follow-up with her primary care physician in the next few days. Strict return precautions were discussed. Low suspicion for pyelonephritis, cholecystitis, nephrolithiasis or any other emergent process. PRESCRIPTIONS: Promethazine DM, albuterol inhaler, Tylenol SPECIALIST FOLLOW UP RECOMMENDED: None Blood Pressure Assessment: Patient's blood pressure was elevated (>120/80) but appears stable without evidence of hypertension emergency or urgency. The patient was counseled about the risks of hypertension and urged to pursue outpatient monitoring and therapy within a week with their primary care physician. Departure Diagnosis: Primary Impression: Bronchitis Additional Impressions: Cough Dysuria Condition: Stable [facility] Additional Instructions: Chest x-ray is negative for pneumonia. Symptoms are likely viral in origin. I am prescribing you cough medication as well as an albuterol inhaler to use for the next few days. Take Tylenol as needed for any body aches or fevers. Return for new or worsening symptoms. SHASHI DIAZ PA-C May 02, 2018 21:29
[2018-05-02] MEDS ORDERED: ACETAMINOPHEN 325 MG TAB PO ONE (21:30)
[2018-05-02] MEDS ORDERED: ACET-141 PO (23:14)
[2018-05-02] MEDS ORDERED: ALBU8.5H8 INH (23:14)
[2018-05-02] MEDS ORDERED: D-ME473S2 PO (23:14)
[2018-05-02 23:30] VITALS: BP 143/67; PULSE 71; RESP 20
== END 2018-05-02 23:31 | disposition home or self-care (01) ==
LOC: FTE 17:18
DX: J40 Bronchitis, not specified as acute or chronic (principal); I10 Essential (primary) hypertension; R30.0 Dysuria; Z79.82 Long term (current) use of aspirin
CPT/HCPCS: 71045; 81003; 96361; 96374; 99284; J1885; J7030; Z7610

== ENCOUNTER 2018-05-14 23:31 | Emergency (ER) | payer BC ==
[~2018-05-14] VITALS: Ht 152.4 cm; Wt 100.3 kg
[~2018-05-14 23:31] MED LIST changes: +ACET-141 PO; +ALBU8.5H8 INH; +D-ME473S2 PO
--- NOTE | 2018-05-14 23:53 | ERD ---
ER Documentation Chief Complaint Chief Complaint fever/body aches/cough 1 week, worse today HPI The patient is a 57-year-old female, presenting to the ER because of fever, general body pain, sore throat, cough, diarrhea, vomiting for the last week. She denies facial pain, neck pain, chest pain, dyspnea, dysuria. She does not smoke nor drink, denies any recent traveling Past medical history: Hypertension, dyslipidemia, hypothyroidism Past surgical history: Right ear mass resection ROS All systems reviewed and are negative except as per history of present illness. Medications Home Meds Active Scripts Ibuprofen* (Motrin*) 600 Mg Tab, 600 MG PO Q6H PRN for PAIN AND OR ELEVATED TEMP, #30 TAB Prov:DARELL DIXON MD 05/15/18 Dextromethorphan Hb-Promethazine Hcl* (Promethazine DM* Syrup) 473 Ml Syrup, 10 ML PO Q6 PRN for COUGH, #120 ML Prov:DARELL DIXON MD 05/15/18 Acetaminophen* (Acetaminophen*) 500 MG Extra Strength Tablet, 500 MG PO Q4H PRN for PAIN AND OR ELEVATED TEMP, #30 TAB Prov:DANAEIGRSHASHI LEMUS-C 05/02/18 Albuterol Sulfate* (Proair HFA*) 8.5 Gm Hfa.aer.ad, 2 PUFF INH Q4H PRN for WHEEZING AND SOB, #1 INHALER Prov:DANAEIGRIKISHASHI DAMON PA-C 05/02/18 Dextromethorphan Hb-Promethazine Hcl* (Promethazine DM* Syrup) 473 Ml Syrup, 5 ML PO Q6 PRN for COUGH for 5 Days, ML Prov:SHASHI DIAZ PA-C 05/02/18 Acetaminophen* (Tylophen*) 500 Mg Capsule, 1 CAP PO Q6H PRN for PAIN AND OR ELEVATED TEMP, #20 CAP Prov:SEVEN DE LA ROSA PA-C 09/26/17 Ibuprofen* (Motrin*) 600 Mg Tab, 600 MG PO Q6, #30 TAB Prov:LEXUS,YVON 05/11/17 Phenylephrine Hcl (Sudogest PE) 10 Mg Tablet, 10 MG PO BID PRN for otalgia for 3 Days, TAB Prov:LEXUS,YVON 05/11/17 Cetirizine Hcl* (Zyrtec*) 10 Mg Capsule, 10 MG PO DAILY, #10 TAB.CHEW Prov:LEXUS,YVON 05/11/17 Fluticasone Propionate (Flonase Allergy Relief) 9.9 Ml Finger.susp, 1 SPRAY NASAL BID, #1 BOTTLE TO EACH NOSTRIL Prov:LEXUS,YVON 05/11/17 Ibuprofen* (Motrin*) 600 Mg Tab, 600 MG PO Q6, #20 TAB Prov:GOVIND CHEUNG PA-C 04/30/17 Amoxicillin/Potassium Clav (Amox-Clav 875-125 mg Tablet) 875-125 mg Tab, 1 TAB PO BID for 10 Days, #20 TAB Prov:GOVIND CHEUNG PA-C 04/30/17 Naproxen* (Naproxen*) 375 Mg Tablet, 375 MG PO BID PRN for PAIN, #20 TAB Prov:KATERINA GOLD PA-C 08/07/16 Benzonatate* (Tessalon Perle*) 100 Mg Capsule, 100 MG PO Q8H PRN for COUGH, #30 CAP Prov:KATERINA GOLD PA-C 08/07/16 Polymyxin B Sulfate-TMP* (Polymyxin B-TMP Eye Drops*) 10 Ml Drops, 1 DROP BOTH EYES QID for 7 Days, EA Prov:KATERINA GOLD PA-C 08/07/16 Nitrofurantoin Monohyd Macrocr* (Macrobid*) 100 Mg Capsr, 100 MG PO BID for 7 Days, CAP Prov:REBECCA NGO PA-C 04/16/16 Cyclobenzaprine Hcl* (Cyclobenzaprine Hcl*) 10 Mg Tablet, 10 MG PO QHS, #7 TAB Prov:REBECCA NGO PA-C 04/16/16 Prednisone* (Prednisone*) 20 Mg Tab, 40 MG PO DAILY for 4 Days, TAB Prov:REBECCA NGO PA-C 04/16/16 Naproxen* (Naprosyn*) 500 Mg Tablet, 500 MG PO BID PRN for PAIN AND/OR INFLAMMATION, #30 TAB Prov:REBECCA NGO PA-C 04/16/16 Hydrocodone/Acetaminophen ([place] 5-325 Tablet) 1 Each Tablet, 1 TAB PO Q6H PRN for PAIN, #15 TAB Prov:REBECCA NGOC 04/16/16 Dextromethorphan Hb-Promethazine Hcl (Promethazine DM Syrup) 473 Ml Syrup, 5 ML PO Q6H PRN for COUGH, #4 OZ Prov:RE REID MD 04/01/16 Ibuprofen* (Motrin*) 600 Mg Tab, 600 MG PO Q6, #20 TAB Prov:RE REID MD 04/01/16 Azithromycin* (Zithromax*) 250 Mg Tablet, 250 MG PO .ZPACK DIRECTED, #6 TAB TAKE 500 MG (2 TABS) THE FIRST DAY THEN 250 MG (1 TAB) DAYS 2-5 Prov:RE REID MD 04/01/16 Ibuprofen* (Motrin*) 600 Mg Tab, 600 MG PO Q6, #20 TAB Prov:GOVIND CHEUNG PA-C 03/29/16 Benzonatate* (Tessalon Perle*) 100 Mg Capsule, 100 MG PO Q8H PRN for COUGH, #20 CAP Prov:GOVIND CHEUNG PA-C 03/29/16 Ondansetron (Ondansetron Odt) 4 Mg Tab.rapdis, 4 MG PO Q6H PRN for NAUSEA AND/OR VOMITING, #10 TAB Prov:GOVIND NATHAN 02/05/16 Dicyclomine HCl (Dicyclomine HCl) 10 Mg Capsule, 10 MG PO QID, #20 CAP Prov:GOVIND NATHAN 02/05/16 Aspirin* (Aspirin* EC) 81 Mg Tabec, 81 MG PO DAILY for 30 Days Prov:IVIS HAMMER 05/29/15 Reported Medications Atorvastatin Calcium (Atorvastatin Calcium) 10 Mg Tablet, 10 MG PO QHS, #30 TAB 05/28/15 Losartan Potassium* (Losartan Potassium*) 25 Mg Tablet, 25 MG PO DAILY, TAB 05/28/15 Hydrochlorothiazide* (Hydrochlorothiazide*) 25 Mg Tab, 25 MG PO DAILY, #30 TAB 05/28/15 Allergies Allergies: Coded Allergies: No Known Drug Allergies (Verified Allergy, Mild, 02/05/16) PMhx/Soc History of Surgery: Yes (R Ear Surgery; L Side Neck Cyst Removal) Anesthesia Reaction: No Hx Neurological Disorder: No Hx Respiratory Disorders: No Hx Cardiac Disorders: Yes (HTN) Hx Psychiatric Problems: No Hx Miscellaneous Medical Probl: Yes (Dyslipidemia) Hx Alcohol Use: No Hx Substance Use: No Hx Tobacco Use: No Physical Exam Vitals Vital Signs Date Temp Pulse Resp B/P (MAP) Pulse Ox O2 O2 Flow FiO2 Time Delivery Rate 05/15/18 103.1 00:14 05/15/18 103.1 00:14 05/15/18 103.1 118 20 139/109 95 Room Air 00:08 (119) 05/15/18 103.1 123 20 169/83 95 00:02 (111) 05/14/18 103.1 123 20 169/83 95 23:43 (111) Physical Exam Const: No acute distress. Head: Atraumatic. Eyes: Normal Conjunctiva. ENT: Normal External Ears, Nose and Mouth. Bilateral tympanic membranes and oropharynx are within normal limits Neck: Full range of motion. No meningismus. Resp: Clear to auscultation bilaterally. Cardio: Regular tachycardic Abd: Soft, non distended, normal bowel sounds, non tender. Skin: No petechiae or rashes. Back: No midline or flank tenderness. Ext: No cyanosis, or edema. Neur: Awake and alert. No focal deficit Psych: Normal Mood and Affect. Result Diagram: 05/14/188 05/14/18 2355 Results 24 hrs Laboratory Tests Test 05/14/18 23:55 05/15/18 00:40 05/15/18 00:44 White Blood Count 12.4 10^3/ul Red Blood Count 4.80 10^6/ul Hemoglobin 14.3 g/dl Hematocrit 41.9 % Mean Corpuscular Volume 87.3 fl Mean Corpuscular Hemoglobin 29.8 pg Mean Corpuscular 34.1 g/dl Hemoglobin Concent Red Cell Distribution Width 13.7 % Platelet Count 291 10^3/UL Mean Platelet Volume 10.9 fl Immature Granulocytes % 0.500 % Neutrophils % 78.4 % Lymphocytes % 12.3 % Monocytes % 7.1 % Eosinophils % 1.2 % Basophils % 0.5 % Nucleated Red Blood Cells % 0.0 /100WBC Immature Granulocytes # 0.060 10^3/ul Neutrophils # 9.7 10^3/ul Lymphocytes # 1.5 10^3/ul Monocytes # 0.9 10^3/ul Eosinophils # 0.2 10^3/ul Basophils # 0.1 10^3/ul Nucleated Red Blood Cells # 0.0 10^3/ul Prothrombin Time 13.1 Sec Prothrombin Time Ratio 1.0 INR International 0.98 Normalized Ratio Activated Partial Thromboplast 36.3 Sec Time Sodium Level 138 mmol/L Potassium Level 3.6 mmol/L Chloride Level 97 mmol/L Carbon Dioxide Level 25 mmol/L Anion Gap 16 Blood Urea Nitrogen 11 mg/dl Creatinine 0.53 mg/dl Est Glomerular Filtrat > 60 mL/min Rate mL/min Glucose Level 112 mg/dl Lactic Acid Level 1.3 mmol/L Calcium Level 9.7 mg/dl Total Bilirubin 0.4 mg/dl Direct Bilirubin 0.00 mg/dl Indirect Bilirubin 0.4 mg/dl Aspartate Amino 24 IU/L Transf (AST/SGOT) Alanine 22 IU/L Aminotransferase (ALT/SGPT) Alkaline Phosphatase 93 IU/L Troponin I < 0.012 ng/ml Total Protein 8.9 g/dl Albumin 4.7 g/dl Globulin 4.20 g/dl Albumin/Globulin Ratio 1.11 Urine Color YELLOW Urine Clarity CLEAR Urine pH 6.0 Urine Specific [place] 1.009 Urine Ketones NEGATIVE mg/dL Urine Nitrite NEGATIVE mg/dL Urine Bilirubin NEGATIVE mg/dL Urine Urobilinogen NEGATIVE mg/dL Urine Leukocyte Esterase NEGATIVE [place]/ul Urine Hemoglobin NEGATIVE mg/dL Urine Glucose NEGATIVE mg/dL Urine Total Protein NEGATIVE mg/dl Bedside Urine pH (LAB) 7.0 Bedside Urine Protein (LAB) Negative Bedside Urine Glucose (UA) Negative Bedside Urine Ketones (LAB) Negative Bedside Urine Blood Trace-lysed Bedside Urine Nitrite (LAB) Negative Bedside Urine Leukocyte Esterase Negative (L Current Medications Medications Dose Sig/Ruth Start Time Status Last (Trade) Ordered Route PRN Stop Time Admin Dose Reason Admin Sodium 1,370 ml BOLUS OVER 2 05/15/18 DC 05/15/18 Chloride HOURS STAT 00:03 00:15 (NS) IV* 05/15/18 00:06 650 mg ONCE ONCE 05/15/18 DC 05/15/18 Acetaminophen PO 00:30 00:14 (Tylenol 05/15/18 00:31 Tab) Ibuprofen 600 mg ONCE ONCE 05/15/18 DC 05/15/18 (Motrin) PO 00:30 00:14 05/15/18 00:31 Procedures/[place] [id number] Radiology Main Line: [phone] DIAGNOSTIC IMAGING REPORT Patient: ESTELA OSWALD : 1960 Age: 57 Sex: F MR #: [id number] DOS: 05/15/18 0003 Ordering MD: DARELL DIXON MD Location: E/R Room/Bed: PROCEDURE: XR Chest. CLINICAL INDICATION: Sepsis. TECHNIQUE: Single frontal view of the chest. COMPARISON: Plain film examination the chest dated 04/01/2016. FINDINGS: Cardiomegaly is new over interval. Hypoinflated lungs and patient body habitus accentuate pulmonary vascular markings. Mild pulmonary vascular congestion and patchy bilateral air space disease. Mild atelectasis at the left mid lung. No signs of pleural fluid or pneumothorax are seen. The osseous structures and soft tissues are unremarkable. IMPRESSION: Cardiomegaly and mild failure. RPTAT: [facility] Physician Charli Date Time Electronically viewed and signed by Physician Charli on 05/15/2018 01:43 RS/ CC: DARELL DIXON MD [phone] MEDICAL MAKING DECISION: The patient is a 57-year-old female, presenting with acute viral syndrome. She was treated with ideal body with IV fluid for acute clinical dehydration, Tylenol and Motrin for fever with good response, her vital signs improved. She is stable for outpatient follow-up The differential diagnoses considered include but are not limited to influenza, pneumonia, cystitis, pyelonephritis, viral syndrome, dehydration Departure Diagnosis: Primary Impression: Viral syndrome Condition: Good Comments She was discharged with Phenergan DM and Motrin I discussed the findings with the patient. I advised the patient to follow-up with the primary physician the morning or return to the ER for re-evaluation. Disclaimer: Inadvertent spelling and grammatical errors are likely due to EHR/dictation software use and do not reflect on the overall quality of patient care. Also, please note that the electronic time recorded on this note does not necessarily reflect the actual time of the patient encounter. DARELL DIXON MD May 14, 2018 23:53
[2018-05-15 00:02] VITALS: Ht 152.4 cm; Wt 100.3 kg
[2018-05-15] MEDS ORDERED: SODIUM CHLORIDE 0.9% 1L BAG IV* STA (00:03)
[2018-05-15] MEDS ORDERED: ACETAMINOPHEN 325 MG TAB PO ONE (00:30)
[2018-05-15] MEDS ORDERED: IBUPROFEN 600 MG TAB PO ONE (00:30)
[2018-05-15 03:30] VITALS: BP 112/63; PULSE 90; RESP 20
[2018-05-15] MEDS ORDERED: IBUP-1542 PO (03:41)
[2018-05-15] MEDS ORDERED: D-ME473S2 PO (03:41)
== END 2018-05-15 03:59 | disposition home or self-care (01) ==
LOC: E/R 23:31
DX: B34.9 Viral infection, unspecified (principal); I10 Essential (primary) hypertension; E03.9 Hypothyroidism, unspecified; Z79.82 Long term (current) use of aspirin
CPT/HCPCS: 71045; 80053; 81003; 83605; 84484; 85025; 85610; 85730; 87040; 87086; 87400; 87880; 93005; J7030; Z7610; 36415